=== PATIENT | male | born 1960 | race Caucasian/White ===

== ENCOUNTER 2017-02-11 14:53 | Emergency (ER) | payer OTHER ==
[~2017-02-11] VITALS: Ht 175.3 cm; Wt 85.3 kg
[2017-02-11] MEDS ORDERED: IV NORMAL SALINE 1,000ML 1,000 ML IV ONE ×2 (15:15)
[2017-02-11] MEDS ORDERED: fentaNYL PF 100 MCG/2 ML VIAL IV ONE (15:30)
[2017-02-11] MEDS ORDERED: ONDANSETRON PF 4 MG/2 ML VIAL. IV ONE (15:30)
[2017-02-11 15:34] LABS: BASO % 0 % (0-3); EOS % 0 % (0-3); HEMATOCRIT 41.7 % (39.0-53.0); HEMOGLOBIN 14.5 g/dL (13.0-17.5); LYMPH # 1.8 x10^3/uL (1.0-4.8); LYMPH % 21 % (24-48); MEAN CORPUSCULAR HEMOGLOBIN 31 pg (25-35); MEAN CORPUSCULAR HGB CONC 35 g/dL (31-37); MEAN CORPUSCULAR VOLUME 89 fL (79-100); MONO # 0.6 x10^3/uL (0.0-1.1); MONO % 7 % (0-9); NEUT # 6.4 x10^3uL (1.8-7.7); NEUT % 72 % (31-73); PLATELET COUNT 116 x10^3/uL (140-400); RED BLOOD COUNT 4.67 x10^6/uL (4.30-5.70); RED CELL DISTRIBUTION WIDTH 13.8 % (11.5-14.5); WHITE BLOOD COUNT 8.9 x10^3/uL (4.0-11.0)
[2017-02-11 15:45] LABS: ALBUMIN 3.7 g/dL (3.4-5.0); C REACTIVE PROTEIN 3.8 mg/L (0-3.3); CALCIUM 8.9 mg/dL (8.5-10.1); GFR 77.9; POTASSIUM 4.7 mmol/L (3.5-5.1); TOTAL BILIRUBIN 1.4 mg/dL (0.2-1.0); TOTAL PROTEIN 7.5 g/dL (6.4-8.2)
[2017-02-11] MEDS ORDERED: MORPHINE SULFATE 4 MG/ML DISP.SYRIN. IV ONE (16:00)
--- NOTE | 2017-02-11 16:22 | ED.ADGEN ---
Past History Past Medical History: No Pertinent History Past Surgical History: No Surgical History Alcohol Use: None Drug Use: None Adult General Chief Complaint Chief Complaint Abdominal pain HPI HPI Patient is a 86-year-old male who presents with diffuse diffuse midabdominal pain starting this morning. Pain is described as sharp, intense and worse with palpation and movement. Patient is unable to find position of comfort. Pain is not associated with nausea vomiting, diarrhea or constipation. Patient has not had fever chills or sweats. He recently returned from [facility] for several month stay with the . While in [facility], the patient states he was admitted for 3 days for unspecified GI illness. No prior abdominal surgeries. No other acute symptoms or complaints. Review of Systems Review of Systems ROS as per HPI. Current Medications Current Medications Current Medications Medications (Trade) Dose Ordered Sig/Elida Start Time Stop Time Status Last Admin Dose Admin Fentanyl Citrate (Fentanyl 2ml Vial) 50 mcg 1X ONCE 02/11/17 15:30 02/11/17 15:31 DC 02/11/17 15:30 50 MCG Hydromorphone HCl (Dilaudid) 1 mg 1X ONCE 02/11/17 17:00 02/11/17 17:01 02/11/17 16:51 1 MG Iohexol (Omnipaque 300 Mg/ml) 75 ml 1X ONCE 02/11/17 16:30 02/11/17 16:31 DC 02/11/17 16:17 75 ML Morphine Sulfate (Morphine 4mg Syringe) 4 mg 1X ONCE 02/11/17 16:00 02/11/17 16:01 DC 02/11/17 16:00 4 MG Ondansetron HCl (Zofran) 4 mg 1X ONCE 02/11/17 15:30 02/11/17 15:31 DC 02/11/17 15:30 4 MG Piperacillin Sod/ Tazobactam Sod (Zosyn) 3.375 gm STK-MED ONCE 02/11/17 16:46 02/11/17 16:47 DC Piperacillin Sod/ Tazobactam Sod 3.375 gm/Sodium Chloride 50 ml @ 100 mls/hr 1X ONCE 02/11/17 17:00 02/11/17 17:29 02/11/17 16:51 100 MLS/HR Sodium Chloride 50 ml @ As Directed STK-MED ONCE 02/11/17 16:46 02/11/17 16:47 DC Allergies Allergies Allergies Coded Allergies Type Severity Reaction Last Updated Verified No Known Drug Allergies 08/27/15 No Physical Exam Physical Exam Constitutional: Well developed, well nourished, moderate discomfort secondary to pain HENT: Normocephalic, atraumatic, bilateral external ears normal, oropharynx moist, no oral exudates, nose normal. Eyes: PERRLA, EOMI, conjunctiva normal. Neck: Normal range of motion, no tenderness, supple, no stridor. Cardiovascular:Heart rate regular rhythm, no murmur. Lungs & Thorax: Bilateral breath sounds clear. Abdomen: Bowel sounds normal, soft, and abdominal pain, tenderness, quite bowel sounds, or distention, voluntary guarding. No rebound or rigidity. Skin: Warm, dry. Back: No tenderness. Extremities: No tenderness. Neurologic: Alert and oriented X 3, normal motor function, normal sensory function, no focal deficits noted. Psychologic: Affect normal, judgement normal, mood normal. Current Patient Data Vital Signs Vital Signs Date Time Temp Pulse Resp B/P (MAP) Pulse Ox O2 Delivery O2 Flow Rate FiO2 02/11/17 15:06 97.9 60 18 100 Room Air Lab Results Laboratory Tests Test 02/11/17 15:18 White Blood Count 8.9 x10^3/uL (4.0-11.0) Red Blood Count 4.67 x10^6/uL (4.30-5.70) Hemoglobin 14.5 g/dL (13.0-17.5) Hematocrit 41.7 % (39.0-53.0) Mean Corpuscular Volume 89 fL (79-100) Mean Corpuscular Hemoglobin 31 pg (25-35) Mean Corpuscular Hemoglobin Concent 35 g/dL (31-37) Red Cell Distribution Width 13.8 % (11.5-14.5) Platelet Count 116 x10^3/uL (140-400) L Neutrophils (%) (Auto) 72 % (31-73) Lymphocytes (%) (Auto) 21 % (24-48) L Monocytes (%) (Auto) 7 % (0-9) Eosinophils (%) (Auto) 0 % (0-3) Basophils (%) (Auto) 0 % (0-3) Neutrophils # (Auto) 6.4 x10^3uL (1.8-7.7) Lymphocytes # (Auto) 1.8 x10^3/uL (1.0-4.8) Monocytes # (Auto) 0.6 x10^3/uL (0.0-1.1) Eosinophils # (Auto) 0.0 x10^3/uL (0.0-0.7) Basophils # (Auto) 0.0 x10^3/uL (0.0-0.2) Sodium Level 139 mmol/L (136-145) Potassium Level 4.7 mmol/L (3.5-5.1) Chloride Level 104 mmol/L (98-107) Carbon Dioxide Level 30 mmol/L (21-32) Anion Gap 5 (6-14) L Blood Urea Nitrogen 8 mg/dL (8-26) Creatinine 1.0 mg/dL (0.7-1.3) Estimated GFR (Cockcroft-Gault) 77.9 BUN/Creatinine Ratio 8 (6-20) Glucose Level 142 mg/dL (70-99) H Calcium Level 8.9 mg/dL (8.5-10.1) Total Bilirubin 1.4 mg/dL (0.2-1.0) H Aspartate Amino Transferase (AST) 26 U/L (15-37) Alanine Aminotransferase (ALT) 42 U/L (16-63) Alkaline Phosphatase 89 U/L (46-116) C-Reactive Protein 3.8 mg/L (0-3.3) H Total Protein 7.5 g/dL (6.4-8.2) Albumin 3.7 g/dL (3.4-5.0) Albumin/Globulin Ratio 1.0 (1.0-1.7) Lipase 128 U/L (73-393) EKG EKG [] Radiology/Procedures Radiology/Procedures [CT abdomen pelvis: Findings of acute appendicitis and cholelithiasis per radiology report] Course & Med Decision Making Course & Med Decision Making Pertinent Labs and Imaging studies reviewed. (See chart for details) [V pain medications antibiotics given. CT findings of acute appendicitis. Dr. Guadalupe accepts to [facility].] Final Impression Final Impression [1. Abdominal pain 2. Acute appendicitis] Problems: Dragon Disclaimer Dragon Disclaimer This electronic medical record was generated, in whole or in part, using a voice recognition dictation system. ANIKA BARAJAS DO February 11, 2017 16:22
[2017-02-11] MEDS ORDERED: IOHEXOL 300 MG/ML 75 ML VIAL. IV ONE (16:30)
--- NOTE | 2017-02-11 16:40 | RAD ---
CT of the abdomen and pelvis with contrast, 02/11/2017: History: Generalized abdominal pain Multidetector CT imaging was performed following an IV bolus injection of iodinated contrast material. No oral contrast material was administered for this study. The liver is unremarkable. A couple of tiny radiopacities within the dependent aspect of the gallbladder compatible with gallstones. No gallbladder wall thickening or pericholecystic edema is seen. The pancreas is unremarkable. The spleen shows no abnormality. No renal or adrenal abnormality is detected. The abdominal aorta is of normal caliber. No abdominal or pelvic adenopathy is seen. The urinary bladder is unremarkable. The bowel loops are not dilated. There is a blind-ending tubular structure extending medially from the cecum compatible with a dilated appendix. It measures 15 mm in width. It contains a small radiopacity near its junction with the cecum compatible with an appendicolith. There is minimal hazy increased density in the adjacent periappendiceal fat compatible with inflammation. The appearance is that of early acute appendicitis. No free fluid or free air is evident in the abdomen or pelvis. IMPRESSION: 1. Dilated appendix containing an appendicolith as described above, compatible with acute appendicitis. 2. Cholelithiasis. PQRS Compliance Statement: One or more of the following individualized dose reduction techniques were utilized for this examination: 1. Automated exposure control 2. Adjustment of the mA and/or kV according to patient size 3. Use of iterative reconstruction technique
[2017-02-11] MEDS ORDERED: PIPERACILLIN/TAZOBACTAM 3.375 GM VIAL IV ONE (16:46)
[2017-02-11] MEDS ORDERED: IV NORMAL SALINE 50ML 50 ML ONE (16:46)
[2017-02-11] MEDS ORDERED: PIPERACILLIN/TAZOBACTAM 3.375 GM in IV NORMAL SALINE 50ML 50 ML IV ONE (17:00)
[2017-02-11] MEDS ORDERED: HYDROmorphone PF 1 MG/ML DISP.SYRIN IV ONE (17:00)
[2017-02-11 17:10] VITALS: BP 119/79
[2017-02-11] MEDS ORDERED: ONDANSETRON PF 4 MG/2 ML VIAL. IV PRN (18:15)
[2017-02-11] MEDS ORDERED: MORPHINE SULFATE 2 MG/ML DISP.SYRIN. IV PRN (18:15)
[2017-02-11] MEDS ORDERED: PROCHLORPERAZINE 10 MG/2 ML VIAL. IV PRN (18:15)
[2017-02-11] MEDS ORDERED: IV RINGERS SOLUTION,LACTATED 1,000 ML IV SCH (18:15)
[2017-02-11] MEDS ORDERED: MORPHINE SULFATE 4 MG/ML DISP.SYRIN. IV PRN (18:15)
[2017-02-11] MEDS ORDERED: fentaNYL PF 100 MCG/2 ML VIAL IV PRN ×2 (18:15)
[2017-02-11] MEDS ORDERED: LIDOCAINE 1% PF 2 ML VIAL. SQ ONE (18:30)
== END 2017-02-11 17:25 | disposition short-term general hospital (02) ==
LOC: ER 14:53
DX: K35.80 Unspecified acute appendicitis (principal); K80.20 Calculus of gallbladder without cholecystitis without obstruction
CPT/HCPCS: 36415; 74177; 80053; 83690; 85027; 86140; 96361; 96374; 96375; 99285; J1170; J2270; J2405; J2543; J3010; Q9967; 96365; J7030

== ENCOUNTER 2019-11-07 18:06 | Emergency (ER) | payer OTHER ==
[~2019-11-07] VITALS: Ht 177.8 cm; Wt 86.4 kg
--- NOTE | 2019-11-07 18:59 | PHYS DOC ---
Past History Past Medical History: GERD Past Surgical History: Appendectomy Alcohol Use: None Drug Use: None Adult General Chief Complaint Chief Complaint: FLU SYMPTOM HPI HPI Patient is a 59 year old male who presents with complaint of cough and shortness of breath. The patient states that he originally started having cough 3 weeks ago. Did not have any associated body aches or shortness of breath at that time. Notes that starting approximately 10 days ago however, he started to have worsening cough, wheezing, and shortness of breath. Notes previous history of bronchitis but denies any history of chronic structural lung disease such as asthma or COPD. No previous history of coronary artery disease or heart failure. States that he has felt feverish within the past couple days. Notes pain with coughing throughout his chest and tightness with breathing. Denies any abdominal pain, vomiting, or loose stools. Has been taking [id number] cough medication with no significant improvement in symptoms. The patient notes that he is concerned he may have pneumonia and thus came to the emergency department for further evaluation. Review of Systems Review of Systems Constitutional: Subjective fever[] Eyes: Denies change in visual acuity, redness, or eye pain [] HENT: Sore throat, runny nose[] Respiratory: Cough, wheezing, shortness of breath, chest tightness with breathing[] Cardiovascular: Denies substernal chest pain or no edema[] GI: Denies abdominal pain, nausea, vomiting, bloody stools or diarrhea [] : Denies dysuria or hematuria [] Musculoskeletal: Denies back pain or joint pain [] Integument: Denies rash or skin lesions [] Neurologic: Denies headache, focal weakness or sensory changes [] All other systems were reviewed and found to be within normal limits, except as documented in this note. Current Medications Current Medications Current Medications Medications (Trade) Dose Ordered Sig/Elida Start Time Stop Time Status Last Admin Dose Admin Albuterol/ Ipratropium (Duoneb) 3 ml 1X ONCE 11/07/19 19:00 11/07/19 19:01 UNV Prednisone (Prednisone) 60 mg 1X ONCE 11/07/19 19:00 11/07/19 19:01 UNV Allergies Allergies Allergies Coded Allergies Type Severity Reaction Last Updated Verified No Known Drug Allergies 08/27/15 No Physical Exam Physical Exam Constitutional: Alert, afebrile, appears ill but in no acute distress. [] HENT: Normocephalic, atraumatic, bilateral external ears normal, oropharynx moist, no oral exudates, clear rhinorrhea. [] Eyes: PERRLA, EOMI, conjunctiva normal, no discharge. [] Neck: Normal range of motion, no tenderness, supple, no stridor. [] Cardiovascular:Heart rate regular rhythm, no murmur [] Lungs & Thorax: Fine rales in right lower lung base, faint expiratory wheezes bilaterally, no accessory muscle usage[] Abdomen: Bowel sounds normal, soft, no tenderness, no masses, no pulsatile masses. [] Skin: Warm, dry, no erythema, no rash. [] Back: No tenderness, no CVA tenderness. [] Extremities: No tenderness, no cyanosis, no clubbing, ROM intact, no edema. [] Neurologic: Alert and oriented X 3, normal motor function, normal sensory func tion, no focal deficits noted. [] Current Patient Data Vital Signs Vital Signs Date Time Temp Pulse Resp B/P (MAP) Pulse Ox O2 Delivery O2 Flow Rate FiO2 11/07/19 18:37 99.8 90 20 146/103 (117 96 Room Air Lab Results Not performed EKG EKG Not performed[] Radiology/Procedures Radiology/[place] [address] IMAGING REPORT Signed PATIENT: BENI SHELTON ACCOUNT: [id number] : 1960 LOCATION: ER AGE: 59 SEX: M EXAM STATUS: REG ER ORD. PHYSICIAN: TAMAR HARPER MD REASON: cough, shortness of breath for 10 days PROCEDURE: CHEST PA & LATERAL PA and lateral chest. HISTORY: Cough, short of breath PA and lateral views were taken of the chest. Comparison is made with a study from May 25, 2011. Lungs are clear. There is a small nodule in the right apex. A follow-up study could be of benefit as it was not definitively identified on the old study. No infiltrates are noted. There is no effusion. IMPRESSION: 1. Small right apical nodule follow-up chest x-ray in 3-6 months would be of benefit. 2. No infiltrates noted. Electronically signed by: Caesar Heck MD (11/07/2019 7:07 PM) [id number] DICTATED AND SIGNED BY: CAESAR HECK MD DATE: 11/07/19 190 CC: TAMAR HARPER MD; CELINE BRADLEY MD ~ [] Course & Med Decision Making Course & Med Decision Making Pertinent Labs and Imaging studies reviewed. (See chart for details) Chest x-ray was negative for pneumonia. Patient was administered DuoNeb and prednisone in the emergency department. Given chronicity of symptoms with mildly elevated temperature and worsening bronchospasm, I am concerned that patient may have a bacterial etiology for what appears to be acute bronchitis. Patient prescribed doxycycline in addition to albuterol inhaler and 5 day course of prednisone for treatment of symptoms. Recommended follow-up in 2 days with primary doctor for reevaluation and return to the emergency department for any worsening symptoms. Advised return to the emergency department for any worsening symptoms per the patient was understanding and in agreement with treatment plan.[] Dragon Disclaimer Dragon Disclaimer This electronic medical record was generated, in whole or in part, using a voice recognition dictation system. Departure Departure: Impression: Primary Impression: Acute bronchitis Disposition: 01 HOME, SELF-CARE Condition: IMPROVED Referrals: CELINE BRADLEY MD (PCP) Patient Instructions: Acute Bronchitis Additional Instructions: Follow-up with your primary doctor in 2 days for reevaluation. Return to the emergency department for any worsening symptoms. Scripts Prednisone (PREDNISONE) 20 Mg Tablet 3 TAB PO DAILY, #12 TAB Prov: TAMAR HARPER MD 11/07/19 Albuterol Sulfate (PROAIR HFA INHALER) 8.5 Gm Hfa.aer.ad 2 PUFF IH Q4-6HRS PRN for wheezing for 21 Days, #1 INHALER 0 Refills Prov: TAMAR HARPER MD 11/07/19 Doxycycline Hyclate (DOXYCYCLINE HYCLATE) 100 Mg Capsule 1 CAP PO BID, #14 CAP Prov: TAMAR HARPER MD 11/07/19 Problem Qualifiers Primary Impression: Acute bronchitis Bronchitis organism: unspecified organism Qualified Codes: J20.9 - Acute bronchitis, unspecified TAMAR HARPER MD Nov 07, 2019 18:59
[2019-11-07] MEDS ORDERED: predniSONE 20 MG TABLET PO ONE (19:00)
[2019-11-07] MEDS ORDERED: IPRATRPIUM/ALBUTEROL 0.5/2.5MG 3 ML NEBU. NEB ONE (19:00)
--- NOTE | 2019-11-07 19:10 | RAD ---
PA and lateral chest. HISTORY: Cough, short of breath PA and lateral views were taken of the chest. Comparison is made with a study from May 25, 2011. Lungs are clear. There is a small nodule in the right apex. A follow-up study could be of benefit as it was not definitively identified on the old study. No infiltrates are noted. There is no effusion. IMPRESSION: 1. Small right apical nodule follow-up chest x-ray in 3-6 months would be of benefit. 2. No infiltrates noted. Electronically signed by: Caesar Heck MD (11/07/2019 7:07 PM) [id number]
[2019-11-07] MEDS ORDERED: PRED20TA PO (19:25)
[2019-11-07] MEDS ORDERED: DOXY100C2 PO (19:25)
[2019-11-07] MEDS ORDERED: ALBU2.5V8 IH (19:25)
[2019-11-07] MEDS ORDERED: DOXYCYCLINE HYCLATE 100 MG TABLET PO ONE (19:30)
[2019-11-07 19:54] VITALS: BP 128/51
== END 2019-11-07 19:55 | disposition home or self-care (01) ==
LOC: ER 18:06
DX: J20.9 Acute bronchitis, unspecified (principal); K21.9 Gastro-esophageal reflux disease without esophagitis; Z90.49 Acquired absence of other specified parts of digestive tract
CPT/HCPCS: 71046; 94640; 99283; J7512; J7620

== ENCOUNTER → 2020-02-04 | Outpatient (CLI) | payer OTHER ==
[~2020-02-04] MED LIST: ALBU2.5V8 IH; DOXY100C2 PO; PRED20TA PO
--- NOTE | 2020-02-04 15:35 | RAD ---
EXAM: CHEST 2 VIEWS. HISTORY: Cough, lung nodule, smoking history. COMPARISON: 11/07/2019. FINDINGS: Frontal and lateral views of the chest are obtained. A well-defined nodule in the right apex is new since the prior study but is likely an artifact from an overlying button. There is a similar opacity on the left. The previous site of concern is no longer clearly identified. There are no confluent infiltrates. There is no pneumothorax or pleural effusion. The heart is not enlarged. IMPRESSION: 1. The previously noted nodule is no longer clearly seen. If there are risk factors, CT lung screening may be of benefit to further exclude nodules. Electronically signed by: Kyle Cardoza MD (02/04/2020 3:32 PM) [id number]
== END | disposition home or self-care (01) ==
LOC: RAD 14:56
PROVIDERS: ATTEND Internal Medicine
DX: R91.1 Solitary pulmonary nodule (principal); Z87.891 Personal history of nicotine dependence
CPT/HCPCS: 71046

== ENCOUNTER → 2020-03-17 | Outpatient (CLI) | payer OTHER ==
[~2020-03-17] MED LIST changes: +ESOM20CA56 PO
== END ==
LOC: LAB 07:51
PROVIDERS: ATTEND Nurse Anesthetist, Certified Registered
DX: Z11.59 Encounter for screening for other viral diseases (principal)
CPT/HCPCS: U0003-CS

== ENCOUNTER → 2020-03-20 | Day surgery (SDC) | payer OTHER ==
[~2020-03-20] MED LIST changes: +ACETAMINOPHEN 325 MG TABLET PO PRN; +ALBUTEROL SULFATE 2.5 MG/3 ML NEBU. NEB PRN; +ATROPINE 0.5 MG/5 ML DISP.SYRIN. IV PRN; +IV RINGERS SOLUTION,LACTATED 1,000 ML IV SCH; +ONDANSETRON PF 4 MG/2 ML VIAL. IV PRN; +PROPOFOL 10,000 MCG/ML (20ML) VIAL IV ONE; +diphenhydrAMINE 50 MG/ML VIAL IV PRN
--- NOTE | 2020-03-20 09:34 | NUR ---
Pt is complaining of lower abdominal pain/cramping. Pt has ambulated and attempted to go to the bathroom, without success. Dr. Dial notified of this and is aware. He stated to monitor and that patient needs to pass some flatus and see if his pain improves. pt sitting at bedside. Vitals signs stable, see frequent vitals. Dr Dial at bedside assessing pt.
--- NOTE | 2020-03-20 09:46 | NUR ---
pt continues to have some cramping, Dr Dial wanted pt to ambulate. Ambulated pt through hallways at this time.
--- NOTE | 2020-03-20 10:05 | NUR ---
Pt passing flatus and feeling better. Pt assessed by doctor and cleared to discharge home.
[2020-03-20 10:10] VITALS: BP 124/68
--- NOTE | 2020-03-21 15:08 | PATHOLOGY ---
[facility] Accession Number: [id number] . 01 Material submitted: . colon - PROXIMAL SIGMOID POLYPECTOMY. Modifiers: sigmoid, proximal . 01 Clinical history: . None provided . 02 Diagnosis: Colonic mucosa, proximal sigmoid polypectomy: - Tubular adenoma. . ([facility]:mm; 03/21/2020) [facility] 03/21/2020 1151 Local . 02 Comment: There is no high grade dysplasia or evidence of malignancy. . ([facility]:mm; 03/21/2020) . 02 Electronically signed: . Ayush Wray MD, Pathologist NPI- [id number] . 01 Gross description: . The specimen is received in formalin, labeled "Rashel Tomman, proximal sigmoid polypectomy". Received are two segments of pale levy soft tissue measuring 0.3 cm each in maximum dimensions. The specimen is submitted entirely in cassette A1. ([facility]; 03/20/2020) [facility] 03/20/2020 1819 Local . 02 Pathologist provided ICD-10: D12.5 . 02 CPT . 084670 Specimen Comment: A courtesy copy of this report has been sent to [phone] Specimen Comment: [id number] Specimen Comment: Report sent to / DR BRADLEY Performed at: 01 [facility] [address], [place] [id number] MD Jaime Lambert MD Phone: [phone] Performed at: 02 [facility] [address] [place], [place] [id number] MD Ayush Wray MD Phone: [phone]
== END | disposition home or self-care (01) ==
LOC: SURG 07:00
PROVIDERS: ATTEND Internal Medicine Gastroenterology
DX: Z12.11 Encounter for screening for malignant neoplasm of colon (principal); K63.89 Other specified diseases of intestine; D12.5 Benign neoplasm of sigmoid colon; K57.30 Diverticulosis of large intestine without perforation or abscess without bleeding; K21.9 Gastro-esophageal reflux disease without esophagitis; Z87.09 Personal history of other diseases of the respiratory system; Z79.899 Other long term (current) drug therapy; Z90.49 Acquired absence of other specified parts of digestive tract
CPT/HCPCS: 45385; 88305; J2704; J7120